=== PATIENT | female | born 1970 | race Hispanic/Latino ===

== ENCOUNTER → 2017-09-13 | Outpatient (CLI) | payer MEDICAID | END | disposition home or self-care (01) | LOC: RAH 09:13 | PROVIDERS: ATTEND Family Medicine | DX: Z12.31 Encounter for screening mammogram for malignant neoplasm of breast (principal) | CPT/HCPCS: 77067 ==

== ENCOUNTER → 2018-11-08 | Outpatient (CLI) | payer MEDICAID | END | disposition home or self-care (01) | LOC: RAH 11:22 | PROVIDERS: ATTEND Family Medicine | DX: Z12.31 Encounter for screening mammogram for malignant neoplasm of breast (principal) | CPT/HCPCS: 77067 ==

== ENCOUNTER 2019-01-11 16:44 | Emergency (ER) | payer MEDICAID ==
[2019-01-11] MEDS ORDERED: IBUPROFEN 400 MG TABLET ONE (16:57)
[2019-01-11] MEDS ORDERED: IBUPROFEN 200 MG TAB ONE (16:57)
[2019-01-11 17:02] LABS: APPEARANCE,URINE CLOUDY (CLEAR); BILIRUBIN,URINE NEGATIVE (NEGATIVE); COLOR,URINE YELLOW (YELLOW); GLUCOSE, URINE (UA) NEGATIVE (NEGATIVE); KETONES,URINE NEGATIVE (NEGATIVE); LEUKOCYTE ESTERASE ,URINE LARGE (NEGATIVE); NITRATE,URINE NEGATIVE (NEGATIVE); OCCULT BLOOD,URINE LARGE (NEGATIVE); PROTEIN,URINE >=300 mg/dL (NEGATIVE); UROBILINOGEN,URINE 0.2 mg/dL (0.2-1.0)
[2019-01-11] MEDS ORDERED: NITROFURANTOIN MONOHYD/M-CRYST 100 MG CAPSULE PO ONE (17:15)
[2019-01-11 17:16] LABS: RBC,URINE TNTC /HPF (0-1)
[2019-01-11 17:17] LABS: BACTERIA,URINE Rare /HPF (None Seen); SQUAMOUS EPITHELIAL CELL,UR None Seen /HPF (0-2)
== END 2019-01-11 18:13 | disposition home or self-care (01) ==
LOC: EDH 16:44
DX: N39.0 Urinary tract infection, site not specified (principal); E11.9 Type 2 diabetes mellitus without complications; E78.00 Pure hypercholesterolemia, unspecified; Z90.710 Acquired absence of both cervix and uterus
CPT/HCPCS: 81001

== ENCOUNTER → 2019-12-10 | Outpatient (CLI) | payer MEDICAID | END | disposition home or self-care (01) | LOC: RAH 13:43 | PROVIDERS: ATTEND Family Medicine | DX: Z12.31 Encounter for screening mammogram for malignant neoplasm of breast (principal) | CPT/HCPCS: 77067 ==

== ENCOUNTER → 2021-12-31 | Outpatient (CLI) | payer MEDICAID | END | disposition home or self-care (01) | LOC: RAH 15:48 | PROVIDERS: ATTEND Physical Medicine & Rehabilitation | DX: M47.812 Spondylosis without myelopathy or radiculopathy, cervical region (principal); M54.12 Radiculopathy, cervical region; M54.2 Cervicalgia | CPT/HCPCS: 72050 ==

== ENCOUNTER → 2022-02-08 | Outpatient (CLI) | payer MEDICAID ==
[~2022-02-08] MED LIST: GADOTERATE MEGLUMINE 10 MMOL/20 ML VIAL IV ONE
== END | disposition home or self-care (01) ==
LOC: RAH 13:31
PROVIDERS: ATTEND Physical Medicine & Rehabilitation
DX: M50.122 Cervical disc disorder at C5-C6 level with radiculopathy (principal)
CPT/HCPCS: 72141

== ENCOUNTER 2022-07-25 00:11 | Emergency (ER) | payer MEDICAID ==
[~2022-07-25] VITALS: Ht 154.9 cm; Wt 7.5 kg
[2022-07-25 00:35] LABS: BASOPHILS % (AUTO) 0.5 % (0.0-5.0); EOSINOPHILS % (AUTO) 0.9 % (0.0-8.0); HEMATOCRIT 44.2 % (36-48); MEAN CORPUSCULAR HEMOGLOBIN 28.7 pg (27.0-33.0); MEAN CORPUSCULAR HGB CONC 33.5 g/dL (32.0-36.0); MEAN CORPUSCULAR VOLUME 85.7 fL (79-99); MONOCYTES % (AUTO) 6.6 % (3.0-13.0); NEUTROPHILS % (AUTO) 58.7 % (40.0-77.0); PLATELET COUNT (AUTO) 271 K/uL (130-400); RED BLOOD CELL COUNT(AUTO) 5.16 MIL/uL (4.00-5.50); RED CELL DISTRIBUTION WIDTH 12.4 % (11.0-15.5); WHITE BLOOD COUNT (AUTO) 6.6 K/uL (4.8-10.8)
[2022-07-25 00:36] LABS: APPEARANCE,URINE CLOUDY (CLEAR); BILIRUBIN,URINE NEGATIVE (NEGATIVE); COLOR,URINE YELLOW (YELLOW); GLUCOSE, URINE (UA) 150 mg/dL (NEGATIVE); KETONES,URINE NEGATIVE (NEGATIVE); LEUKOCYTE ESTERASE ,URINE NEGATIVE Leu/uL (NEGATIVE); NITRATE,URINE NEGATIVE (NEGATIVE); OCCULT BLOOD,URINE NEGATIVE (NEGATIVE); PH,URINE 5.5 (5.0-8.0); PROTEIN,URINE 50 mg/dL (NEGATIVE); UROBILINOGEN,URINE 0.2 mg/dL (0.2-1.0)
[2022-07-25 00:39] LABS: HCG,QUALITATIVE URINE NEGATIVE (NEGATIVE)
[2022-07-25 00:41] LABS: BACTERIA,URINE RARE /HPF (None Seen); MUCUS,URINE MANY LPF (None Seen); SQUAMOUS EPITHELIAL CELL,UR FEW /HPF (0-2)
[2022-07-25 00:51] LABS: CREATININE 0.7 mg/dL (0.5-1.5); POTASSIUM 3.9 mmol/L (3.5-5.1)
[2022-07-25 00:56] LABS: ALBUMIN 4.2 g/dL (3.5-5.0); TOTAL PROTEIN, SERUM 7.3 g/dL (6.0-8.3)
[2022-07-25] MEDS ORDERED: 0.9%NACL 1000ML 1,000 ML IV ONE (01:00)
[2022-07-25] MEDS ORDERED: ONDANSETRON 4MG INJ IVP ONE (01:00)
[2022-07-25] MEDS ORDERED: IOHEXOL 350 MG/ML 100ML INFUS..BTL IV ONE (01:24)
[2022-07-25] MEDS ORDERED: IBUP-1493 PO (03:22)
[2022-07-25] MEDS ORDERED: OMEP40CA21 PO (03:22)
[2022-07-25 03:31] VITALS: BP 118/65
== END 2022-07-25 03:38 | disposition home or self-care (01) ==
LOC: EDH 00:11
DX: R10.32 Left lower quadrant pain (principal); I10 Essential (primary) hypertension; E78.00 Pure hypercholesterolemia, unspecified; E11.9 Type 2 diabetes mellitus without complications; Z90.710 Acquired absence of both cervix and uterus
CPT/HCPCS: 99285; 74177; 96360; 96361; 80053; 85025; 87088; 81001; 81025; 36415; J7030; J2405; Q9967

== ENCOUNTER → 2022-08-09 | Outpatient (CLI) | payer MEDICAID ==
[~2022-08-09] MED LIST changes: -GADOTERATE MEGLUMINE 10 MMOL/20 ML VIAL IV ONE; +IBUP-1493 PO; +OMEP40CA21 PO
== END | disposition home or self-care (01) ==
LOC: RAH 15:03
PROVIDERS: ATTEND Family Medicine
DX: Z12.31 Encounter for screening mammogram for malignant neoplasm of breast (principal)
CPT/HCPCS: 77067

== ENCOUNTER 2023-08-09 05:47 | Day surgery (SDC) | payer MEDICAID ==
[2023-08-02 14:11] LABS: BASOPHILS # (AUTO) 0.02 K/uL (0.00-0.20); BASOPHILS % (AUTO) 0.3 % (0.0-5.0); EOSINOPHILS # (AUTO) 0.07 K/uL (0.00-0.70); HEMATOCRIT 39.2 % (36-48); IMMATURE GRANULOCYTE ABSOLUTE 0.02 K/uL (0-1); LYMPHOCYTES # (AUTO) 1.8 K/uL (1.0-4.8); LYMPHOCYTES % (AUTO) 25.8 % (21.0-51.0); MEAN CORPUSCULAR HEMOGLOBIN 29.2 pg (27.0-33.0); MEAN CORPUSCULAR HGB CONC 34.2 g/dL (32.0-36.0); MEAN CORPUSCULAR VOLUME 85.4 fL (79-99); MONOCYTES # (AUTO) 0.4 K/uL (0.1-1.0); MONOCYTES % (AUTO) 5.3 % (3.0-13.0); NEUTROPHILS # (AUTO) 4.6 K/uL (1.8-7.7); NEUTROPHILS % (AUTO) 67.3 % (40.0-77.0); PLATELET COUNT (AUTO) 267 K/uL (130-400); RED BLOOD CELL COUNT(AUTO) 4.59 MIL/uL (4.00-5.50); WHITE BLOOD COUNT (AUTO) 6.9 K/uL (4.8-10.8)
[2023-08-02 14:22] LABS: CREATININE 0.6 mg/dL (0.5-1.0); POTASSIUM 3.6 mmol/L (3.5-5.1)
[2023-08-02 14:42] LABS: INR <= 0.93 (0.85-1.15); PROTHROMBIN TIME 9.9 SEC (9.6-11.6)
[2023-08-02 14:46] VITALS: BP 140/68; PULSE 88; RESP 16
[2023-08-09] VITALS (16 sets, daily range): BP systolic 105–130; BP diastolic 50–78; PULSE 88–111; RESP 12–16
[~2023-08-09] VITALS: Ht 154.9 cm; Wt 76.7 kg
[~2023-08-09 05:47] MED LIST changes: +CETI10TA57 PO; +DULO30CA52 PO; +ELUX75TA PO; +ESTR1TAB21 PO; +FAMO40TA7 PO; -IBUP-1493 PO; +INSLAN SQ; +LATA2.5D14 OU; +LEVO88CA4 PO; +LISI10TA24 PO; +METF-444 PO; +MONT-39 PO; -OMEP40CA21 PO; +PRAZ2CAP2 PO; +PROG200C11 PO; +ROSU40TA21 PO; +SEMA2PEN SQ; +SITA100T12 PO
[2023-08-09] MEDS: 0.9%NACL 1000ML 1,000 ML IV ONE (07:06)
[2023-08-09] MEDS: CEFAZOLIN SODIUM 2 GM VIAL ONE (07:06)
[2023-08-09] MEDS ORDERED: PROPOFOL 10 MG/ML 20ML VIAL IV ONE (07:12)
[2023-08-09] MEDS ORDERED: FENTANYL CITRATE PF 50 MCG/1 ML 2ML VIAL ONE (07:12)
[2023-08-09] MEDS ORDERED: MIDAZOLAM HCL 1 MG/ML 2ML VIAL ONE (07:12)
[2023-08-09] MEDS ORDERED: ONDANSETRON 4MG INJ ONE (07:21)
[2023-08-09] MEDS ORDERED: BUPIVACAINE/PF 0.5% 30ML VIAL ONE (07:22)
[2023-08-09] MEDS: BUPIVACAINE/PF 0.5% 30ML VIAL INJ ONE (07:29)
[2023-08-09] MEDS ORDERED: DOCU-116 PO ×2 (07:38)
[2023-08-09] MEDS ORDERED: TRAM50TA4 PO ×2 (07:38)
== END 2023-08-09 09:11 | disposition home or self-care (01) ==
LOC: DAH 05:47
PROVIDERS: ATTEND Surgery
DX: L72.3 Sebaceous cyst (principal); L72.0 Epidermal cyst; E11.9 Type 2 diabetes mellitus without complications; I10 Essential (primary) hypertension; E03.9 Hypothyroidism, unspecified; Z82.49 Family history of ischemic heart disease and other diseases of the circulatory system; Z83.3 Family history of diabetes mellitus; Z80.9 Family history of malignant neoplasm, unspecified; Z79.4 Long term (current) use of insulin; Z79.84 Long term (current) use of oral hypoglycemic drugs; Z79.890 Hormone replacement therapy; Z79.899 Other long term (current) drug therapy; Z90.710 Acquired absence of both cervix and uterus; Z98.890 Other specified postprocedural states
CPT/HCPCS: 80048; 85025; 85610; 36415; 11401; 82948 ×2; 88304; A6260; J0665 ×2; A4663; A4452; J3010; J7030; J2250; J3490; J2405; J0690; A4930 ×2; A4215; A4223; A4222; A4221; A4600; J2704

== ENCOUNTER 2023-08-13 01:57 | Emergency (ER) | payer MEDICAID ==
[~2023-08-13] VITALS: Ht 162.6 cm; Wt 79.8 kg
[~2023-08-13 01:57] MED LIST changes: +DOCU-116 PO; -ROSU40TA21 PO; +ROSU40TA70 PO; +TRAM50TA4 PO
[2023-08-13] MEDS ORDERED: HYDR25CA PO (02:18)
[2023-08-13] MEDS: DIAZEPAM 2 MG TAB PO ONE (02:49)
[2023-08-13 03:12] VITALS: BP 142/78; PULSE 87; RESP 20; O2SAT 100
== END 2023-08-13 03:13 | disposition home or self-care (01) ==
LOC: EDH 01:57
DX: F41.9 Anxiety disorder, unspecified (principal); E11.9 Type 2 diabetes mellitus without complications; E78.00 Pure hypercholesterolemia, unspecified; I10 Essential (primary) hypertension; Z79.84 Long term (current) use of oral hypoglycemic drugs; Z79.890 Hormone replacement therapy; Z79.899 Other long term (current) drug therapy; Z90.710 Acquired absence of both cervix and uterus
CPT/HCPCS: 93005

== ENCOUNTER 2023-08-15 00:33 | Emergency (ER) | payer MEDICAID ==
[~2023-08-15] VITALS: Ht 154.9 cm; Wt 77.6 kg
[~2023-08-15 00:33] MED LIST changes: +HYDR25CA PO; +ROSU40TA21 PO; -ROSU40TA70 PO
[2023-08-15] MEDS: EPINEPHRINE PF 1MG (1:1,000) 1 MG/ML AMP IM ONE (00:45)
[2023-08-15] MEDS: DiphenhydrAMINE HCL 50 MG/ML VIAL IV ONE (00:50)
[2023-08-15] MEDS: FAMOTIDINE 20MG VIAL IV ONE ×2 (00:51→01:03)
[2023-08-15] MEDS: SOLU-MEDROL 125MG VIAL IVP ONE (00:52)
[2023-08-15] MEDS: EPINEPHRINE PF 1MG (1:1,000) 1 MG/ML AMP ONE (01:02)
[2023-08-15] MEDS: SOLU-MEDROL 125MG VIAL ONE (01:03)
[2023-08-15] MEDS: DiphenhydrAMINE HCL 50 MG/ML VIAL ONE (01:03)
[2023-08-15] MEDS ORDERED: PRED5TAB44 PO (01:33)
[2023-08-15 01:41] VITALS: BP 114/53; PULSE 86; RESP 20; O2SAT 97
[2023-08-15] MEDS ORDERED: EPIN0.3P2 IM (01:47)
== END 2023-08-15 02:06 | disposition home or self-care (01) ==
LOC: EDH 00:33
DX: T78.40XA Allergy, unspecified, initial encounter (principal); F41.9 Anxiety disorder, unspecified; E03.9 Hypothyroidism, unspecified; E11.9 Type 2 diabetes mellitus without complications; E78.00 Pure hypercholesterolemia, unspecified; I10 Essential (primary) hypertension; Z79.52 Long term (current) use of systemic steroids; Z79.84 Long term (current) use of oral hypoglycemic drugs; Z79.890 Hormone replacement therapy; Z79.899 Other long term (current) drug therapy; Z90.710 Acquired absence of both cervix and uterus; X58.XXXA Exposure to other specified factors, initial encounter
CPT/HCPCS: 99284; 96374; 96375; 96372; J1200; J2919; J0171; S0028; J3490

== ENCOUNTER → 2023-09-27 | Outpatient (CLI) | payer MEDICAID ==
[~2023-09-27] MED LIST changes: +EPIN0.3P2 IM; +PRED5TAB44 PO; -ROSU40TA21 PO; +ROSU40TA70 PO
== END | disposition home or self-care (01) ==
LOC: RAH 08:27
PROVIDERS: ATTEND Family Medicine
DX: M47.12 Other spondylosis with myelopathy, cervical region (principal); M50.022 Cervical disc disorder at C5-C6 level with myelopathy; M50.023 Cervical disc disorder at C6-C7 level with myelopathy
CPT/HCPCS: 72141

== ENCOUNTER 2023-10-04 16:21 | Emergency (ER) | payer MEDICAID ==
[~2023-10-04] VITALS: Ht 154.9 cm; Wt 74.8 kg
[2023-10-04] MEDS ORDERED: CLIN-141 PO (16:43)
[2023-10-04 16:51] VITALS: BP 156/70; PULSE 93; RESP 20; O2SAT 98
== END 2023-10-04 17:10 | disposition home or self-care (01) ==
LOC: EDH 16:21
DX: D23.62 Other benign neoplasm of skin of left upper limb, including shoulder (principal); E03.9 Hypothyroidism, unspecified; E78.00 Pure hypercholesterolemia, unspecified; E11.9 Type 2 diabetes mellitus without complications; F41.9 Anxiety disorder, unspecified; I10 Essential (primary) hypertension; Z79.52 Long term (current) use of systemic steroids; Z79.84 Long term (current) use of oral hypoglycemic drugs; Z79.890 Hormone replacement therapy; Z79.899 Other long term (current) drug therapy; Z90.710 Acquired absence of both cervix and uterus

== ENCOUNTER 2024-03-02 01:50 | Observation (INO) | payer MEDICAID ==
[~2024-03-02] VITALS: Ht 154.9 cm; Wt 75.3 kg
[~2024-03-02 01:50] MED LIST changes: +CLIN-141 PO; -ROSU40TA70 PO; +ROSU40TA88 PO
--- NOTE | 2024-03-02 01:50 | NUR ---
POISON CONTROL CALLED. CASE NUMBNER [id number]. PATIENT HAD REPORTED THAT SHE ACCIDENTLY TOOK TOO MANY OF HER MEDICATIONS BECAUSE IT WAS DARK. Addendum: 03/02/24 at 0301 by [email or web address] POISON CONTROL CALLED. . PATIENT HAD REPORTED THAT SHE ACCIDENTLY TOOK TOO MANY OF HER MEDICATIONS BECAUSE IT WAS DARK.
--- NOTE | 2024-03-02 01:51 | NUR ---
PER POISON CONTROL, MONITOR FOR TACHYCARDIA AND HYPOTENSION. BASIC LABS WITH ALCOHOL, SALICALATE AND TYLENOL. MONITOR FOR 6-8 HRS
[2024-03-02] MEDS: 0.9%NACL 1000ML 1,000 ML IV ONE (02:24)
--- NOTE | 2024-03-02 02:41 | ERN ---
General Chief Complaint: Overdose Stated Complaint: ACCIDENTAL OVERDOSE Time Seen by MD: 01:59 History of Present Illness Initial Comments Mrs Granados is a 53-year-old female with significant past medical history of type 2 diabetes, hypothyroidism, asthma who presents with a chief complaint of potential overdose. The patient reports taking prazosin for sleep while in the dark. Patient apparently did not know how much who presents in she took patient comes in for further evaluation and care Allergies: Coded Allergies: No Known Drug Allergies (Unverified Allergy, Unknown, 07/25/22) Home Meds Active Scripts Clindamycin HCl (Clindamycin HCl) 300 Mg Capsule, 300 MG PO TID for 7 Days, #21 CAP Prov:MARIEL FERNANDEZ DO 10/04/23 Epinephrine (Epipen) 0.3 Mg/0.3 Ml Auto.injct, 0.3 MG IM ONCE for anaphylaxis, #1 CARTRIDGE Prov:CELIA MARTINEZ 08/15/23 Prednisone (Prednisone) 5 Mg Tab.ds.pk, 5 MG PO DAILY for 5 Days, #5 TAB Prov:CELIA MARTINEZ 08/15/23 Hydroxyzine Pamoate (Vistaril) 25 Mg Capsule, 25 MG PO BID PRN for anxiety for 5 Days, #10 CAP Prov:NOEMÍ STAPLETON MD 08/13/23 Docusate Sodium (Colace) 100 Mg Capsule, 100 MG PO BID, #30 CAP Prov:MILENA BYRD MD 08/09/23 Tramadol Hcl (Tramadol HCl) 50 Mg Tablet, 50 MG PO Q6HPRN PRN for PAIN, #10 TAB 0 Refills Prov:MILENA BYRD MD 08/09/23 Reported Medications Metformin HCl (Metformin HCl) 500 Mg Tablet, 500 MG PO DAILY, TAB 08/04/23 Eluxadoline (Viberzi) 75 Mg Tablet, 75 MG PO DAILY, TAB 08/04/23 Sitagliptin Phosphate (Januvia) 100 Mg Tablet, 100 MG PO DAILY, TAB 08/04/23 Levothyroxine Sodium (Levothyroxine) 88 Mcg Capsule, 88 MCG PO ACBKFST, CAP 08/04/23 Insulin Glargine,Hum.rec.anlog (Lantus) 100 Unit/Ml Inj, 47 UNITS SQ HS, ML 08/04/23 Montelukast Sodium (Montelukast Sodium) 10 Mg Tablet, 10 MG PO HS, TAB 08/04/23 Famotidine (Famotidine) 40 Mg Tablet, 40 MG PO HS, TAB 08/04/23 Duloxetine HCl (Duloxetine HCl) 30 Mg Capsule.dr, 30 MG PO BID, CAP 08/04/23 Prazosin HCl (Prazosin HCl) 2 Mg Capsule, 2 MG PO HS, CAP 08/04/23 Semaglutide (Ozempic) 2 Mg/0.75 Ml (8 Mg/3 Ml) Pen.injctr, 2 MG SQ QWEEK 08/04/23 Progesterone,Micronized (Progesterone) 200 Mg Capsule, 200 MG PO HS, CAP 08/04/23 Rosuvastatin Calcium (Rosuvastatin Calcium) 40 Mg Tablet, 40 MG PO DAILY, TAB 08/04/23 Estradiol (Estrace) 1 Mg Tablet, 1 MG PO DAILY, TAB 08/04/23 Latanoprost (Latanoprost) 0.005 % Drops, 1 DROP OU HS, DROP 08/04/23 Cetirizine HCl (Cetirizine HCl) 10 Mg Tablet, 10 MG PO DAILY, TAB 08/04/23 Lisinopril (Lisinopril) 10 Mg Tablet, 10 MG PO DAILY, TAB 08/04/23 Past Medical History Past Medical History: Anxiety, Depression, Diabetes-Type II, High Cholesterol, Hypertension, Hypothyroid Medical History Other: PTSD Past Surgical History: Hysterectomy Surgical History Other: LUMP REMOVAL RIGHT WRIST AND CYST REMOVAL TO RIGHT BREAST ROS Dictation Constitutional: Negative for fever,chills, and weight loss Eyes: Negative for injury, pain,redness, and discharge ENT: Negative for injury,pain or swelling Cardiovascular: Negative for chest pain, palpitations, and edema Respiratory: Negative for shortness of breath, cough, and wheezing, Abdomen/GI: Negative for abdominal pain, nausea, vomiting, diarrhea, and constipation Back: Negative for injury and pain : Negative for injury, bleeding and discharge MS/Extremity: Negative for injury and deformity Skin: Negative for rash, and discoloration Neuro: Negative for headache, weakness, numbness, tingling, and seizure Psych: Negative for suicide ideation, homicidal ideation, and hallucinations Physical Exam Physical Exam Dictation General: awake, alert, NAD Head/Face: Normocephalic, atraumatic Eyes: PERRL, EOMI, vision at baseline ENT: oral cavity clear, TMs clear Neck: Trachea midline, supple, Cardiovascular: RRR, normal S1/S2, No MRGs, no JVD Respiratory: CTAB, no respiratory distress, No rales or wheezes Abdomen: Soft, non-tender, non-distended, normal bowel sounds, no guarding or rebound. Skin: Warm, dry, normal turgor, no rash MS/Extremity: Pulses equal, no cyanosis, neurovascular intact, FROM Neuro: COAx4, GCS 15, strength 5/5, Psych: Normal behavior, mood, and affect normal Results Laboratory and Microbiology Lab and Micro Result Laboratory Tests Test 03/02/24 02:41 03/02/24 03:06 03/02/24 05:12 White Blood Count 7.5 K/uL (4.8-10.8) Red Blood Count 4.32 MIL/uL (4.00-5.50) Hemoglobin 12.5 g/dL (12.0-16.0) Hematocrit 38.2 % (36-48) Mean Corpuscular Volume 88.4 fL (79-99) Mean Corpuscular Hemoglobin 28.9 pg (27.0-33.0) Mean Corpuscular Hemoglobin Concent 32.7 g/dL (32.0-36.0) Red Cell Distribution Width 13.0 % (11.0-15.5) Platelet Count 225 K/uL (130-400) Mean Platelet Volume 10.8 fL (7.5-10.5) H Immature Granulocyte % (Auto) 0.3 % (0-1) Neutrophils (%) (Auto) 76.6 % (40.0-77.0) Lymphocytes (%) (Auto) 18.1 % (21.0-51.0) L Monocytes (%) (Auto) 4.2 % (3.0-13.0) Eosinophils (%) (Auto) 0.5 % (0.0-8.0) Basophils (%) (Auto) 0.3 % (0.0-5.0) Neutrophils # (Auto) 5.7 K/uL (1.8-7.7) Lymphocytes # (Auto) 1.4 K/uL (1.0-4.8) Monocytes # (Auto) 0.3 K/uL (0.1-1.0) Eosinophils # (Auto) 0.04 K/uL (0.00-0.70) Basophils # (Auto) 0.02 K/uL (0.00-0.20) Absolute Immature Granulocyte (auto 0.02 K/uL (0-1) Nucleated Red Blood Cells 0.0 % (0.0-0.19) Sodium Level 141 mmol/L (136-145) Potassium Level 3.5 mmol/L (3.5-5.1) Chloride Level 108 mmol/L (101-111) Carbon Dioxide Level 26 mmol/L (21-32) Blood Urea Nitrogen 16 mg/dL (7-18) Creatinine 0.6 mg/dL (0.5-1.0) Glomerular Filtration Rate Calc 109 mL/min (>90) Random Glucose 235 mg/dL (70-105) H Total Calcium 8.0 mg/dL (8.5-10.1) L Total Creatine Kinase 52 U/L (21-232) Salicylates Level < 2.8 mg/dL (2.8-20.0) L Acetaminophen Level 2 mcg/mL (10-30) L Serum Alcohol 4 mg/dL (0-10) Urine Color LIGHT-YELLOW (YELLOW) Urine Appearance CLEAR (CLEAR) Urine pH 5.5 (5.0-8.0) Urine Specific [place] 1.042 (1.001-1.031) Urine Protein NEGATIVE mg/dL (NEGATIVE) Urine Glucose (UA) >=1000 mg/dL (NEGATIVE) H Urine Ketones 20 mg/dL (NEGATIVE) H Urine Occult Blood NEGATIVE (NEGATIVE) Urine Nitrate NEGATIVE (NEGATIVE) Urine Bilirubin NEGATIVE mg/dL (NEGATIVE) Urine Urobilinogen 0.2 mg/dL (0.2-1.0) Urine Leukocyte Esterase NEGATIVE [place]/uL Urine RBC 2-5 /HPF (0-1) H Urine WBC 2-5 /HPF (0-1) H Urine Squamous Epithelial Cells RARE /HPF (0-2) Urine Bacteria RARE /HPF (None Seen) Urine Opiates Screen NEGATIVE (NEGATIVE) Urine Barbiturates Screen NEGATIVE (NEGATIVE) Urine Phencyclidine Screen NEGATIVE (NEGATIVE) Urine Amphetamines Screen NEGATIVE (NEGATIVE) Urine Benzodiazepines Screen NEGATIVE (NEGATIVE) Urine Cocaine Screen NEGATIVE (NEGATIVE) Urine Marijuana (THC) Screen NEGATIVE (NEGATIVE) Whole Blood Glucose 204 MG/DL (70-110) H Labs Reviewed?: Yes EKG/XRAY/US/CT/MRI EKG Comment 03/02/2024 time 9:17 a.m. Ventricular rate [address] wave elevation or depression MO 150 MDM MDM: Differential diagnosis: Prazosin overdose, medication overdose, hypotension Rationale: Tests considered and ordered secondary to shared decision making include: labs, ECG and radiology Previous outside records reviewed: Old ER visits. Risk of complication and/or morbidity or mortality of patient management: None Medications-Per medication reconciliation Need for hospitalization: Patient does meet criteria for hospitalization. Need for emergency major/minor surgery: No There are no social concerns with this patient. Prescription drug management Prescriptions will include symptomatic care Patient's prior external medical records from other ER visits were reviewed by me as indicated. Prior testing and results from previous visits were reviewed. Prior tests were taken into account with medical decision making and resource utilization, independent historian/historians were used to obtain complete medical history. I independently interpreted the test that were performed, results were reviewed by me and considered findings on radiology if ordered. Medical management and examination interpretation discussions were had by me with other qualified healthcare professionals as indicated for the patient's care. Patient is a 53-year-old female coming in to be evaluated after taking an increased amount of prazosin. Per patient she is taking this for insomnia. T hroughout ER visit patient remains tachycardic patient will be admitted under the care of Dr. Hernandez for ongoing management ED Course Orders Procedure Category Date Status Time Vital Signs Per CPOE 03/02/24 Transmitted Routine 02:13 Cardiac Monitoring CPOE 03/02/24 Transmitted 02:13 Pulse Ox(Continuous) RT 03/02/24 Transmitted 02:13 Bedside Glucose CPOE 03/02/24 Transmitted Fingerstick 02:13 Suicide Precautions CPOE 03/02/24 Transmitted 02:13 Cath If Unable To CPOE 03/02/24 Transmitted Void In 6hr 02:13 Saline Lock Iv CPOE 03/02/24 Transmitted 02:13 Cbc With Differential LAB 03/02/24 Complete 02:13 Alcohol, Blood LAB 03/02/24 Complete 02:13 Salicylate LAB 03/02/24 Complete 02:13 Acetaminophen LAB 03/02/24 Complete 02:13 Basic Metabolic Panel LAB 03/02/24 Complete 02:13 Call Poison Control CPOE 03/02/24 Transmitted 02:12 Urinalysis Profile LAB 03/02/24 Complete 02:12 12 Lead Ekg Tracing- EKG 03/02/24 Complete Technical 02:12 0.9%Nacl 1000ml (Ns PHA 03/02/24 In Process 1000ml) 02:30 Creatine Kinase, Total LAB 03/02/24 Complete 02:41 Drug Screen Urine LAB 03/02/24 Complete 06:12 0.9%Nacl 1000ml (Ns PHA 03/02/24 In Process 1000ml) 08:00 12 Lead Ekg Tracing- EKG 03/02/24 Complete Technical 09:09 Admit Orders ADM 03/02/24 Transmitted 09:20 Vital Signs Every 4 CPOE 03/02/24 Transmitted Hours 09:20 Condition: CPOE 03/02/24 Transmitted 09:20 0.9%Nacl 1000ml (Ns PHA 03/02/24 In Process 1000ml) 09:30 Pantoprazole 40mg Inj PHA 03/02/24 Complete (Protonix 40mg Inj 09:30 Initiate Hypokalemia CPOE 03/02/24 Transmitted Po Half 09:20 Potassium Chloride PHA 03/02/24 In Process 10meq/100ml ([place] 09:30 Potassium Chl 10% PHA 03/02/24 In Process Elixir 20meq (Kcl 10% 09:30 Potassium Chloride PHA 03/02/24 In Process 20meq Er (K-Dur/Klor- 09:30 Notify Physician If CPOE 03/02/24 Transmitted There Is 09:20 Notify Md On The Next CPOE 03/02/24 Transmitted 09:20 Notify Md On The CPOE 03/02/24 Transmitted Next(Cont.) 09:20 Initiate MORENA 03/02/24 In Process Hyperglycemia Protoco 09:20 Insulin Regular, PHA 03/02/24 In Process Human 3ml (Humulin R 11:30 Magnesium 2gm Premix PHA 03/02/24 In Process 50ml (Magnesium 2gm 09:30 Consistent Carb DIET 03/02/24 Transmitted Lunch *Nursing CPOE 03/02/24 Transmitted Communication: 09:20 *Nursing CPOE 03/02/24 Transmitted Communication: 09:20 Cbc With Differential LAB 03/03/24 Verified 04:00 Basic Metabolic Panel LAB 03/03/24 Verified 04:00 Magnesium LAB 03/03/24 Verified 04:00 Current Medications Medications (Trade) Dose Ordered Sig/Shahid Route PRN Reason Start Time Stop Time Status Last Admin Dose Admin Insulin Human Regular (humuLIN R 100 UNIT/ML 3ML) INSULIN SLIDING SCAL... ACHS SQ 03/02/24 11:30 04/01/24 11:29 Magnesium Sulfate 50 ml @ 0 mls/hr PROTOCOL PRN IV MAGNESIUM PROTOCOL 03/02/24 09:30 04/01/24 09:29 Pantoprazole Sodium (PROTonix 40MG INJ) 40 mg ONCE ONCE IVP 03/02/24 09:30 03/02/24 09:31 DC Potassium Chloride 100 ml @ 100 mls/hr AD PRN IV POTASSIUM PROTOCOL 03/02/24 09:30 04/01/24 09:29 Potassium Chloride (K-Dur/Klor-Con 20meq) 10 meq AD PRN PO POTASSIUM PROTOCOL 03/02/24 09:30 04/01/24 09:29 Potassium Chloride (KCl 10% Elixir 20meq/15ml) 10 meq AD PRN PO POTASSIUM PROTOCOL 03/02/24 09:30 04/01/24 09:29 Sodium Chloride 1,000 ml @ 100 mls/hr Q10H IV 03/02/24 09:30 04/01/24 09:29 Sodium Chloride 1,000 ml @ 125 mls/hr ONCE ONCE IV 03/02/24 02:30 03/02/24 10:29 03/02/24 02:24 Sodium Chloride 2,232 ml @ 744 mls/hr ONCE ONCE IV 03/02/24 08:00 03/02/24 10:59 03/02/24 07:50 Vital Signs Date Time Temp Pulse Resp B/P (MAP) Pulse Ox O2 Delivery O2 Flow Rate FiO2 03/02/24 07:36 97.2 116 18 126/50 98 Room Air* 0 03/02/24 06:35 97.2 102 18 121/60 98 Room Air* 0 03/02/24 05:08 95 18 121/61 96 Room Air* 0 03/02/24 03:46 92 18 94/44 94 Room Air* 0 03/02/24 02:30 94 18 101/40 94 Room Air* 0 03/02/24 02:10 97.2 104 18 97/42 95 Room Air* 0 21 Critical Care Note Comments Critical Care Procedure Note Authorized and Performed by: me Total critical care time: Approximately 36 minutes Due to a high probability of clinically significant, life threatening deterioration, the patient required my highest level of preparedness to intervene emergently and I personally spent this critical care time directly and personally managing the patient. This critical care time included obtaining a history; examining the patient; pulse oximetry; ordering and review of studies; arranging urgent treatment with development of a management plan; evaluation of patient's response to treatment; frequent reassessment; and, discussions with other providers. This critical care time was performed to assess and manage the high probability of imminent, life-threatening deterioration that could result in multi-organ failure. It was exclusive of separately billable procedures and treating other patients and teaching time. Please see MDM section and the rest of the note for further information on patient assessment and treatment. DX & DISP Disposition: Inpatient Decision to Admit Time: 09:42 Departure Impression: Primary Impression: Side effect of drug Additional Impression: Overdose Condition: Stable Referrals: LEE ANN COYLE MD (PCP) ORACIO GUARDADO MD Mar 02, 2024 02:41 NOEMÍ SATPLETON MD Mar 02, 2024 09:43
[2024-03-02 02:47] LABS: BASOPHILS # (AUTO) 0.02 K/uL (0.00-0.20); BASOPHILS % (AUTO) 0.3 % (0.0-5.0); EOSINOPHILS # (AUTO) 0.04 K/uL (0.00-0.70); EOSINOPHILS % (AUTO) 0.5 % (0.0-8.0); HEMATOCRIT 38.2 % (36-48); IMMATURE GRANULOCYTE ABSOLUTE 0.02 K/uL (0-1); LYMPHOCYTES # (AUTO) 1.4 K/uL (1.0-4.8); LYMPHOCYTES % (AUTO) 18.1 % (21.0-51.0); MEAN CORPUSCULAR HEMOGLOBIN 28.9 pg (27.0-33.0); MEAN CORPUSCULAR HGB CONC 32.7 g/dL (32.0-36.0); MEAN CORPUSCULAR VOLUME 88.4 fL (79-99); MONOCYTES # (AUTO) 0.3 K/uL (0.1-1.0); MONOCYTES % (AUTO) 4.2 % (3.0-13.0); NEUTROPHILS # (AUTO) 5.7 K/uL (1.8-7.7); NEUTROPHILS % (AUTO) 76.6 % (40.0-77.0); PLATELET COUNT (AUTO) 225 K/uL (130-400); RED BLOOD CELL COUNT(AUTO) 4.32 MIL/uL (4.00-5.50); WHITE BLOOD COUNT (AUTO) 7.5 K/uL (4.8-10.8)
[2024-03-02 02:59] LABS: CARBON DIOXIDE 26 mmol/L (21-32); CHLORIDE 108 mmol/L (101-111); CREATININE 0.6 mg/dL (0.5-1.0); GLOMERULAR FILTR. RATE CALC 109 mL/min (>90); GLUCOSE,RANDOM 235 mg/dL (70-105); POTASSIUM 3.5 mmol/L (3.5-5.1); SODIUM SERUM 141 mmol/L (136-145); UREA NITROGEN, BLOOD 16 mg/dL (7-18)
[2024-03-02 03:04] LABS: ACETAMINOPHEN 2 mcg/mL (10-30); ALCOHOL, BLOOD 4 mg/dL (0-10); CREATINE KINASE, TOTAL 52 U/L (21-232)
[2024-03-02 03:10] LABS: SALICYLATE < 2.8 mg/dL (2.8-20.0)
[2024-03-02 03:17] LABS: APPEARANCE,URINE CLEAR (CLEAR); BILIRUBIN,URINE NEGATIVE (NEGATIVE); COLOR,URINE LIGHT-YELLOW (YELLOW); GLUCOSE, URINE (UA) >=1000 mg/dL (NEGATIVE); KETONES,URINE 20 mg/dL (NEGATIVE); LEUKOCYTE ESTERASE ,URINE NEGATIVE Leu/uL (NEGATIVE); NITRATE,URINE NEGATIVE (NEGATIVE); OCCULT BLOOD,URINE NEGATIVE (NEGATIVE); PH,URINE 5.5 (5.0-8.0); PROTEIN,URINE NEGATIVE (NEGATIVE); UROBILINOGEN,URINE 0.2 mg/dL (0.2-1.0)
[2024-03-02 03:19] LABS: ADD UA MICROSCOPIC YES
[2024-03-02 03:20] LABS: BACTERIA,URINE RARE /HPF (None Seen); SQUAMOUS EPITHELIAL CELL,UR RARE /HPF (0-2)
--- NOTE | 2024-03-02 04:30 | NUR ---
POISON COTNROL CALLED AT THIS TIME. UPDATED SPAR MACHINE OPERATOR HELPER ON PT'S VITAL SIGNS AND LABORATORY RESULTS.
[2024-03-02 06:26] LABS: AMPHET/METH SCREEN,URINE NEGATIVE (NEGATIVE); BARBITURATE SCREEN, URINE NEGATIVE (NEGATIVE); BENZODIAZEPINES SCREEN,URINE NEGATIVE (NEGATIVE); CANNABINOID SCREEN,URINE NEGATIVE (NEGATIVE); COCAINE SCREEN,URINE NEGATIVE (NEGATIVE); OPIATE SCREEN,URINE NEGATIVE (NEGATIVE); PHENCYCLIDINE SCREEN,URINE NEGATIVE (NEGATIVE)
--- NOTE | 2024-03-02 06:45 | EKG ---
[facility] Test Date: 2024-03-02 Test Time: 02:32:07 Pat Name: LUCITA DUNBAR Department: 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
[2024-03-02] MEDS: [UNRECOGNIZED DRUG - OTHER] IV ONE (07:50)
--- NOTE | 2024-03-02 09:22 | EKG ---
[facility] Test Date: 2024-03-02 Test Time: 09:17:06 Pat Name: LUCITA DUNBAR Department: [facility] Room: 229 Gender: F Lithographers Printer: [id number] : 1970 Requested By: NOEMÍ STAPLETON Order Number: [id number] Reading MD: Fer Elizalde Measurements Intervals [place] Rate: 107 P: 58 HI: 150 QRS: 38 QRSD: 75 T: 15 QT: 377 QTc: 504 Interpretive Statements Sinus tachycardia Low voltage, precordial leads Compared to ECG 03/02/2024 02:32:07 Sinus rhythm no longer present Electronically Signed On 03-02-2024 16:15:44 PROCESS MOLD TECHNICIAN by Fer Elizalde Please click the below link to view image of tracing.
[2024-03-02] MEDS ORDERED: PoTASSium chloRIDE 10MEQ/100ML 100 ML IV PRN (09:30)
[2024-03-02] MEDS: PANTOPrazole 40 MG/VIAL IVP ONE (10:23)
[2024-03-02] MEDS: 0.9%NACL 1000ML 1,000 ML IV SCH (10:23)
[2024-03-02 11:20] VITALS: BP 133/62; PULSE 96; RESP 20; TEMP 98.6
[2024-03-02 11:48] VITALS: O2SAT 98
[2024-03-02] MEDS: INSULIN humuLIN R 100 UNIT/ML 3ML SQ SCH (14:50)
[2024-03-02] MEDS: PoTASSium chl 10% ELIXIR 20MEQ 20 MEQ/15 ML UDCUP PO PRN (14:56)
[2024-03-02] MEDS: MAGNESIUM 2GM PREMIX 50ML 50 ML IV PRN (14:58)
[2024-03-02 16:00] VITALS: BP 139/72; PULSE 92; RESP 20; TEMP 98.4
[2024-03-02] MEDS: PoTASSium chloRIDE 20MEQ ER 20 MEQ ERTAB PO PRN (17:35)
[2024-03-02] MEDS ORDERED: INSU3INS3 SQ (18:11)
[2024-03-02] MEDS ORDERED: PoTASSium chloRIDE 10MEQ SR 10 MEQ/TAB TAB.SR.24H PO PRN (19:00)
[2024-03-02 19:35] VITALS: BP 125/63; PULSE 97; RESP 20; TEMP 98.1
[2024-03-02 20:00] VITALS: O2SAT 98
[2024-03-02] MEDS: monteLUKAST sodIUM 10 MG TAB PO SCH (20:08)
[2024-03-02] MEDS: duloXETine HCL 30 MG CAP PO SCH (20:08)
[2024-03-02] MEDS: atorVAStatin 40 MG TABLET PO SCH (20:08)
[2024-03-02] MEDS: PRAZOSIN HCL 2 MG PO SCH (21:00)
[2024-03-02] MEDS: (Progesterone,Micronized (Progesterone) 200 MG) PO SCH (21:00)
[2024-03-02] MEDS: LATANOPROST 2.5 ML DROPS OU SCH (21:24)
[2024-03-03 00:01] VITALS: BP 128/68; PULSE 99; RESP 20; TEMP 98.7
--- NOTE | 2024-03-03 01:04 | HP ---
CHIEF COMPLAINT: Medication overdose and tachycardia. HISTORY OF PRESENT ILLNESS: A 53-year-old female who has a history of diabetes and took accidentally prazosin tablets and the patient was found to be tachycardic and mild hypertensive, hypokalemic, hypomagnesemia. The patient is hospitalized at this time for IV fluids and close monitoring. The patient took overdose of prazosin. PAST MEDICAL HISTORY: Significant for diabetes mellitus, hypertension, hypothyroidism and depression. PAST SURGICAL HISTORY: Significant for hysterectomy and cyst removal from the right wrist and right breast. ALLERGIES: According to the chart, none. MEDICATIONS: The patient takes clindamycin, epinephrine, prednisone, hydroxyzine, Colace, tramadol, metformin 500 mg, Viberzi 75 mg, Januvia 100 mg, levothyroxine 88 and glargine 47 units at bedtime, montelukast, famotidine, duloxetine 30 mg 2 times, prazosin 2 mg at bedtime, Ozempic takes 2 mg, progesterone 200 mg, rosuvastatin 40 mg, estradiol 1 mg, latanoprost eye drops, cetirizine, lisinopril 10 mg. SOCIAL HISTORY: Denies history of smoking, alcohol or substance use. FAMILY HISTORY: Noncontributory. REVIEW OF SYSTEMS: HEENT: Negative. CARDIOVASCULAR: Tachycardia. RESPIRATORY: No shortness of breath. GASTROINTESTINAL: Nausea. GENITOURINARY: Negative. MUSCULOSKELETAL: Joint pains. PHYSICAL EXAMINATION: GENERAL: The patient is awake, alert, oriented to person, place and time. VITAL SIGNS: Significant for blood pressure is 100/60, pulse is 100-120, respirations are 16. HEENT: Pupils are equal and mucous membranes appears to be dry. NECK: Supple. LUNGS: Mostly decreased breath sounds. No wheeze or rhonchi. HEART: Regular rate and rhythm. ABDOMEN: Soft, nontender. EXTREMITIES: Noted. NEUROLOGIC: No focal deficits noted. LABORATORY DATA: Significant hemoglobin 12.5, platelets are 225. Sodium is 141, potassium 3.5, creatinine 0.6. CK is 52. Salicylates less than 2.8. Tylenol level is 2. Urine screen is negative. Urinalysis shows 2-5 rbc and wbc. EKG shows sinus tachycardia. ASSESSMENT AND PLAN: * Medication overdose of prazosin, tachycardia, hypokalemia, hypomagnesemia. The patient is going to be supplemented electrolytes with potassium and magnesium. * Diabetes mellitus, monitor sugars closely, elevated and cover with insulin also. * Hypertension, borderline. Monitor closely. The patient is going to be hydrated also. Condition discussed. Questions answered. Condition remains stable, may be discharged in next 24-48 hours. TID: [id number] RECEIPT: [id number]
[2024-03-03 04:03] LABS: BASOPHILS # (AUTO) 0.03 K/uL (0.00-0.20); BASOPHILS % (AUTO) 0.4 % (0.0-5.0); EOSINOPHILS # (AUTO) 0.07 K/uL (0.00-0.70); EOSINOPHILS % (AUTO) 0.9 % (0.0-8.0); HEMATOCRIT 36.2 % (36-48); IMMATURE GRANULOCYTE ABSOLUTE 0.02 K/uL (0-1); LYMPHOCYTES # (AUTO) 1.5 K/uL (1.0-4.8); LYMPHOCYTES % (AUTO) 19.6 % (21.0-51.0); MEAN CORPUSCULAR HEMOGLOBIN 28.9 pg (27.0-33.0); MEAN CORPUSCULAR HGB CONC 33.1 g/dL (32.0-36.0); MEAN CORPUSCULAR VOLUME 87.2 fL (79-99); MONOCYTES # (AUTO) 0.5 K/uL (0.1-1.0); MONOCYTES % (AUTO) 6.2 % (3.0-13.0); NEUTROPHILS # (AUTO) 5.7 K/uL (1.8-7.7); NEUTROPHILS % (AUTO) 72.6 % (40.0-77.0); PLATELET COUNT (AUTO) 229 K/uL (130-400); RED BLOOD CELL COUNT(AUTO) 4.15 MIL/uL (4.00-5.50); RED CELL DISTRIBUTION WIDTH 13.2 % (11.0-15.5); WHITE BLOOD COUNT (AUTO) 7.8 K/uL (4.8-10.8)
[2024-03-03 04:23] LABS: CREATININE 0.6 mg/dL (0.5-1.0); MAGNESIUM 2.2 mg/dL (1.80-2.40)
[2024-03-03 04:31] VITALS: BP 130/96; PULSE 100; RESP 17; TEMP 99.2
[2024-03-03] MEDS: levoTHYROxine 88 MCG TABLET PO SCH (06:12)
[2024-03-03 07:00] VITALS: BP 135/76; PULSE 94; RESP 18; TEMP 99.2
[2024-03-03 08:18] VITALS: O2SAT 98
[2024-03-03] MEDS: ESTRADIOL 1 MG PO SCH (09:00)
[2024-03-03] MEDS: ceTIRIzine HCL 5 MG TABLET PO SCH (11:15)
[2024-03-03] MEDS: LISINOPRIL 10 MG TABLET PO SCH (11:16)
[2024-03-03 11:30] VITALS: BP 119/68; PULSE 93; RESP 20; TEMP 98.6
--- NOTE | 2024-03-04 03:53 | DS ---
ADMITTING DIAGNOSES: Hypertension, tachycardia, prazosin overdose, diabetes mellitus, history of hypertension. DISCHARGE DIAGNOSES: Tachycardia, improved. Hypertension, resolved. Dehydration, improved. Prazosin overdose, stable. Rest of diagnoses remain the same. CONDITION AT TIME OF DISCHARGE: Stable. PROGNOSIS: Fair. DISCHARGE MEDICATIONS: Continue with home medications. Hold prazosin for 2 days. HOSPITAL COURSE: The patient came to the Emergency Room with accidental overdose of prazosin. The patient says she was taking prazosin for the insomnia, but the patient is hypertensive, requiring fluids. The patient has tachycardia, which is also improved. Hypokalemia, resolved. Diabetes mellitus, sugars are stable. Hypertension, stable. The patient is discharged home in stable condition. TID: [id number] RECEIPT: [id number]
[2024-03-09] MEDS ORDERED: (Semaglutide (Ozempic) 2 MG) SQ SCH (09:00)
== END 2024-03-03 11:50 | disposition home or self-care (01) ==
LOC: EDH 01:50 → EDHIP 01:51 → INTOOBSV 01:51 → 2AH 11:20
PROVIDERS: ADMIT Family Medicine; ATTEND Family Medicine
DX: T44.6X1A Poisoning by alpha-adrenoreceptor antagonists, accidental (unintentional), initial encounter (principal); R00.0 Tachycardia, unspecified; I10 Essential (primary) hypertension; E11.9 Type 2 diabetes mellitus without complications; E03.9 Hypothyroidism, unspecified; E78.00 Pure hypercholesterolemia, unspecified; G47.00 Insomnia, unspecified; J45.909 Unspecified asthma, uncomplicated; E86.0 Dehydration; E87.6 Hypokalemia; E83.42 Hypomagnesemia; F43.10 Post-traumatic stress disorder, unspecified; Z90.710 Acquired absence of both cervix and uterus; Z79.899 Other long term (current) drug therapy; Y92.89 Other specified places as the place of occurrence of the external cause
CPT/HCPCS: 96372 ×2; 96361 ×4; 96365; 96366; 82550; 80048 ×2; 80305; 85025 ×2; 82948 ×4; 81001; 36415 ×2; 99291; 96375; 93005 ×2; 83735; G0481; J3475; J2470; J1815 ×4; G0378 ×2